=== PATIENT | male | born 1975 | race Hispanic/Latino ===

== ENCOUNTER 2016-06-01 10:31 | Outpatient (CLI) | payer MEDICARE, OTHER ==
[2016-06-01 12:34] LABS: ALT (SGPT) 46 U/L (0-55); AST (SGOT) 38 U/L (5-34); Alkaline Phosphatase 98 U/L (40-150); Anion Gap 17 mmol/L (10-20); BUN (Urea Nitrogen) 11 mg/dL (8.9-20.6); Bilirubin, Total 0.6 mg/dL (0.2-1.2); Calc. Creatinine Clearance 0 mL/min (70-130); Calcium 9.3 mg/dL (7.8-10.44); Carbon Dioxide 27 mmol/L (22-29); Chloride 100 mmol/L (98-107); Estimated GFR-MDRD Greater than 90; Globulin 3.1 g/dL (2.4-3.5); Protein, Total 7.7 g/dL (6.0-8.3)
[2016-06-01 21:40] LABS: Band 8 % (5-11); Hematocrit 49.5 % (42.0-52.0); Mean Platelet Volume 6.9 fL (7.4-10.4); Neutrophil 49 % (42-75); Reactive Lymphocytes 1 % (0-10); Red Blood Cell (RBC) Count 5.44 mill/uL (4.70-6.10); White Blood Cell (WBC) Count 4.9 thou/uL (4.8-10.8)
== END 2016-06-01 10:32 | disposition home or self-care (01) ==
LOC: BURLAB 10:31
PROVIDERS: ATTEND Family Medicine
DX: D72.810 Lymphocytopenia (principal); D69.6 Thrombocytopenia, unspecified; K76.89 Other specified diseases of liver; G93.3 Postviral and related fatigue syndromes
CPT/HCPCS: 36415; 80053; 84443; 85007; 85027; 86308; 87040; 87389

== ENCOUNTER 2016-06-08 10:36 | Outpatient (CLI) | payer MEDICARE, OTHER ==
[2016-06-08 12:08] LABS: Blood, Urine Negative (Negative); Glucose, Urine (Dipstick) Negative (Negative); Ketone, Urine Negative (Negative); Nitrite Negative (Negative); Protein, Urine (Dipstick) 30 mg/dL (Neg-Trace); Urobilinogen 0.2 mg/dL (0.2-1.0)
[2016-06-08 12:14] LABS: Bilirubin Negative (Negative)
[2016-06-08 12:47] LABS: Bacteria/HPF 1+ HPF (None Seen); RBC/HPF 0-3 HPF (0-3); Squamous Epithelial 0-3 HPF (0-3); WBC/HPF 0-3 HPF (0-3)
--- NOTE | 2016-06-08 17:04 | RAD ---
CHEST TWO VIEWS 06/08/16 Comparison is made with a 10/10/13 study. The heart is normal in size and the lungs are clear. There is no current sign of pneumonia. There ar e no effusions. The trachea is midline. IMPRESSION: No acute thoracic findings. POS: HOME
== END 2016-06-08 10:37 | disposition home or self-care (01) ==
LOC: BURRAD 10:36
PROVIDERS: ATTEND Family Medicine
DX: R50.9 Fever, unspecified (principal)
CPT/HCPCS: 71020; 81001; 87086

== ENCOUNTER 2020-07-15 18:38 | Emergency (ER) | payer MEDICARE ==
[2020-07-15] MEDS ORDERED: Ibuprofen 200 MG TAB ONE (19:11)
--- NOTE | 2020-07-15 21:10 | RAD ---
RIGHT ANKLE THREE VIEWS: 07/15/20 An oblique fracture of the distal fibular shaft just above the lateral malleolus is present. Displace ment is very minimal. There is a small bony spur seen at the tip of the medial malleolus, perhaps fro m an old injury. A tiny calcaneal spur was noted. IMPRESSION: Acute fracture of the distal fibula. POS: HOME
== END 2020-07-15 20:00 | disposition home or self-care (01) ==
LOC: BURERS 18:38
DX: S82.831A Other fracture of upper and lower end of right fibula, initial encounter for closed fracture (principal); F17.210 Nicotine dependence, cigarettes, uncomplicated; Z79.899 Other long term (current) drug therapy; V29.9XXA Motorcycle rider (driver) (passenger) injured in unspecified traffic accident, initial encounter